=== PATIENT | female | born 1965 | race Caucasian/White ===

== ENCOUNTER 2017-07-31 07:56 | Emergency (ER) | payer BC, OTHER ==
[2017-07-31] MEDS: diazePAM 5 MG TABLET PO (08:30)
== END 2017-07-31 09:21 | disposition home or self-care (01) ==
LOC: ER 07:56
DX: S76.011A Strain of muscle, fascia and tendon of right hip, initial encounter (principal); G89.29 Other chronic pain; Z98.51 Tubal ligation status; Z88.0 Allergy status to penicillin; X58.XXXA Exposure to other specified factors, initial encounter; Y93.89 Activity, other specified; Y92.89 Other specified places as the place of occurrence of the external cause; Y99.8 Other external cause status
CPT/HCPCS: 73502; 99284

== ENCOUNTER → 2020-09-21 | Outpatient (CLI) | payer OTHER ==
[2017-07-31 08:08] VITALS: BP 175/81
[~2020-09-21] MED LIST: ALPR0.254 PO; CYCL5TAB PO; IOHEXOL 180 MG/ML 10 ML VIAL. ONE; OXYC1TAB15 PO; PREG150C PO; SIMV20TA18 PO; TIZA4TAB2 PO; TRAM50TA PO; methylPREDNISolone ACETATE 40 MG/ML VIAL. ONE; methylPREDNISolone ACETATE 80 MG/ML VIAL. ONE
--- NOTE | 2020-09-21 11:09 | PDOC1 ---
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 Patient reports now the pain is in the low back right lower extremity posterior gluteus posterior lateral thigh anterior thigh anteromedial thigh medial lower leg also some tingling in the foot and the calf on the right side patient reports occasionally on the left side mostly on the right patient repor ts is constant stabbing describes as throbbing and shooting in the low back and leg tingling with radiating pain in the right leg is noted burning aching and cramping also cold sensation in the right leg and foot patient has had physical therapy as well as doing exercise currently all of which were helpful temporarily she also takes tizanidine and tramadol which helps only to a mild extent as well maybe 20%. Patient did have MRI scan lumbar spine circumferential bulging annulus at L3-4 and L4-5 with L3-4 showing centrally protruding disc measuring 0.7 cm x 1 cm is large and circumferentially bulging and centrally protruded. Appearance of exiting L5 nerve root on the left at L5- S1 as well which may be protruding disc as well L4-5 shows several lateral bulgi ng annulus greater on the left than the right. Patient rates her disability rating 0-10 10 being the worst is a 8-10 with him home responsibilities 10 with recreation 9-10 with social activity occupation 10 with sexual behavior 7-10 with self-care and 2 with life support activities. Patient reports no loss of motor function with significant fatigability in the right leg with walking standing changing positions better with sitting or laying down patient reports it does awaken her from sleep however about 2-3 times a night does not affect her bowel bladder control but does affect her ability to walk significantly however she does not use any assistive devices currently. PAST MEDICAL HISTORY: PMH: Bronchitis, cigarette smoking PREVIOUS SURGERIES: Past Surgical Hx: Cervical laminectomy x2, tubal ligation CURRENT MEDICATIONS: Current Meds: Active Scripts Medications Dose Route/Sig Max Daily Dose Days Date Category Tramadol Hcl 50 Mg Tablet 50 Mg PO TID 09/21/20 Reported Tizanidine Hcl 4 Mg Tablet 2 Mg PO TID PRN 09/21/20 Reported Alprazolam 0.25 Mg Tablet 0.25 Mg PO PRN Q6HRS PRN 09/21/20 Reported Simvastatin 20 Mg Tablet 20 Mg PO BID 09/21/20 Reported Lyrica (Pregabalin) 150 Mg Capsule 1 Cap PO BID 09/21/20 Reported ALLERGIES; Allergies: Coded Allergies: Penicillins (Unverified Allergy, Unknown, 01/23/15) FAMILY HISTORY: Family Hx: No major medical problems or conditions that she is aware of. SOCIAL HISTORY: Social Hx: Patient is drinks alcohol occasionally but not frequently, smokes about half a pack a day of cigarettes and has for 30 years and continues to smoke, does not use any illegal illicit or recreational drugs is lives with her spouse lives locally in [facility] and works as a payroll accounting clerk. REVIEW OF SYSTEMS: ROS: Positive for those items mentioned in history of present illness, all systems are reviewed, otherwise negative ,and are complete full and well-documented on patient's chart. PHYSICAL EXAM: VS: Blood pressure is [birth year]1981 pulse 109 respirations 18 temperature 90.0 2 Fahrenheit height is 5 inches weight is 126 pounds PE: PHYSICAL EXAMINATION: GENERAL: The patient is awake, alert, oriented, appropriate, very pleasant demeanor HEENT: Shows normocephalic, atraumatic. Extraocular movements are intact and symmetrical. Oral cavity: Mucous membranes moist and pink. Dentition is intact. NECK: Shows anterior throat supple without palpable lymphadenopathy noted. Swallow reflex symmetrical. CHEST: Shows normal on inspection. Breath sounds are clear bilaterally, but no rales rhonchi or wheezes auscultated. HEART: Shows S1, S2 clear. No murmurs auscultated. ABDOMEN: Soft, nontender, nondistended, flat. No palpable organomegaly is noted. No rebound or guarding demonstrated. BACK: Shows spine grossly in the midline. Normal-appearing cervical lordotic curvature. There is slightly increased thoracic kyphosis, some minor flattening of the lumbar lordotic curvature. Lumbar paraspinous muscles show symmetrical on inspection, on palpation shows some moderate tenderness diffusely throughout the upper, middle and lower distribution of the paraspinous muscles bilaterally and also into the lower thoracic paraspinous musculature, firm and tender, but without specific trigger points, without radiation of pain. The patient has good rotational motion of the lumbar spine, both laterally as well as extension and flexion without significant difficulty. No tenderness over the spinous processes, sacrum or sacroiliac regions. EXTREMITIES: Lower extremities show deep tendon reflexes 2+ in the patellar and tendo calcaneus tendons. Motor exam is 4 on a scale of 5 with right dorsiflexion, extension, quadriceps and hamstring flexion and 5/5 on the left. Peripheral pulses are 1+ posterior tibial. No peripheral edema is noted bilaterally. Lower extremities are warm and dry to touch, equal in color and appearance. Straight leg raise noted to be negative bilaterally. Gaenslen's and Simone's maneuvers are negative bilaterally as well. The patient is able to stand, stand on her toes without significant difficulty or loss of balance, walks with a slight favoring gait does appear to favor the right lower extremity mildly with walking not use any assistive devices to ambulate. SKIN: Shows warm and dry, good turgor. No edema. No sores, rashes or bruising throughout. IMPRESSION: Impression: 54-year-old female with 9-month history of pain low back and right lower extremity radicular fashion MRI scan lumbar spine as noted Cigarette smoking with chronic bronchitis Plan: Options were discussed with the patient including conservative medical management physical therapies interventional techniques. Patient would like to pursue interventional techniques. We discussed a lumbar epidural steroid injection using description as well as anatomical models described procedure. Risks were discussed including but not limited to: Bleeding, infection, possibility of epidural hematoma and subsequent neurological compromise, dural puncture, headaches, spinal cord and/or nerve damage, side effects of steroid medication, and poor results regarding pain control. Patient understands and wished to proceed. Patient will return to clinic in approximately 2 weeks for follow-up, was counseled as return appointment activity level and side effects to be aware of. Procedure is lumbar epidural steroid injection under local anesthetic using sterile prep and drape at the L3-4 level using C-arm fluoroscopic guidance in both AP and lateral views medications injected is 120 mg Depo-Medrol + 10 mL preservative-free normal saline and 2 mL contrast- condition at discharge is stable patient tolerated procedure well had no complications. QUETA GUARDADO MD September 21, 2020 11:09
--- NOTE | 2020-09-21 11:10 | PDOC4 ---
PROCEDURE Procedure Patient was consented for lumbar epidural steroid injection. Risks were dis cussed including but not limited to: Bleeding, infection, possibility of epidural hematoma and subsequent neurological compromise, dural puncture, headaches, spinal cord and/or nerve damage, side effects of steroid medication, and poor results regarding pain control. Patient understands and wished to proceed. Procedure is lumbar epidural steroid injection under local anesthetic using sterile prep and drape at the L 3- 4 level using C-arm fluoroscopic guidance in both AP and lateral views medications injected is 120 mg Depo-Medrol + 10 mL preservative-free normal saline and 2 mL contrast- condition at discharge is stable patient tolerated procedure well had no complications. QUETA GUARDADO MD September 21, 2020 11:10
== END | disposition home or self-care (01) ==
LOC: PNCL 08:17
PROVIDERS: ATTEND Anesthesiology
DX: M54.5 Low back pain (principal); M79.604 Pain in right leg; F17.210 Nicotine dependence, cigarettes, uncomplicated; Z98.51 Tubal ligation status; Z98.890 Other specified postprocedural states; Z79.899 Other long term (current) drug therapy; Z88.0 Allergy status to penicillin
CPT/HCPCS: 62323; J1030; J1040; Q9965

== ENCOUNTER → 2020-10-05 | Outpatient (CLI) | payer OTHER ==
[2017-07-31 08:08] VITALS: BP 175/81
--- NOTE | 2020-10-05 10:16 | PDOC ---
Progress Note - Pain Clinic Date of Service: DOS: DATE: 10/05/20 TIME: 10:13 Diagnosis: Dx: Lumbar radiculopathy with lumbar degenerative disc disease and lumbar spinal stenosis History or Present Illness: HPI: 54-year-old female returns for follow-up status post lumbar epidural steroid traction x1. Patient reports about 60% improvement initially in the low back and right lower extremity the pain returning after about 20% level overall after about 2 and half weeks. Patient reports the pain is returning fairly significantly and we discussed this and I will elect to proceed with a second lumbar epidural steroid injection as the pain is becoming so severe patient reports initially doing much better for the first 2 weeks with pain decreased in the right lower extremity she was increase her distance walking doing household activities work activities travel with greater ease and comfort sleeping better at night patient reports still does not generally awaken her from sleep and occasionally patient reports the pain is in the low back right lower extremity posterior gluteus lateral thigh anterior thigh medial thigh medial lower leg and medial knee patient ports aching dull tight in the back tingling and burning in the leg cramping and shooting on and off in intensity again worse with activity patient reports no new motor or sensory deficits no new meds. Physical Exam: VS: Blood pressure is 140/72 pulse 88 respirations 18 temperature 90.5 F height is 5 feet 5 inches weight is 124 pounds. PE: PHYSICAL EXAMINATION: GENERAL: The patient is awake, alert, oriented, appropriate, very pleasant demeanor HEENT: Shows normocephalic, atraumatic. Extraocular movements are intact and symmetrical. Oral cavity: Mucous membranes moist and pink. Dentition is intact. NECK: Shows anterior throat supple without palpable lymphadenopathy noted. Swallow reflex symmetrical. CHEST: Shows normal on inspection. Breath sounds are clear bilaterally. HEART: Shows S1, S2 clear. No murmurs auscultated. ABDOMEN: Soft, nontender, nondistended, flat. No palpable organomegaly is noted. No rebound or guarding demonstrated. BACK: Shows spine grossly in the midline. Normal-appearing cervical lordotic curvature. There is slightly increased thoracic kyphosis, some minor flattening of the lumbar lordotic curvature. Lumbar paraspinous muscles show symmetrical on inspection, on palpation shows some moderate tenderness diffusely throughout the upper, middle and lower distribution of the paraspinous muscles without specific trigger points, without radiation of pain. The patient has good rotational motion of the lumbar spine, both laterally as well as extension and flexion without significant difficulty. EXTREMITIES: Lower extremities show deep tendon reflexes 2+ in the patellar and tendo calcaneus tendons. Motor exam is 4 on a scale of 5 with right dorsiflexion, extension, quadriceps and hamstring flexion and 5/5 on the left. Peripheral pulses are 1+ posterior tibial. No peripheral edema is noted bilaterally. Lower extremities are warm and dry to touch, equal in color and appearance. SKIN: Shows warm and dry, good turgor. No edema. No sores, rashes or bruising throughout. Procedure: Procedure: Options were discussed with the patient. Patient chart reviews her current medication regimen updated current review of systems updated today as well. We will proceed with a second in the series lumbar epidural steroid injection stable fluoroscopic guidance. Risks were discussed including but not limited to: Bleeding, infection, possibility of epidural hematoma and subsequent neurological compromise, dural puncture, headaches, spinal cord and/or nerve damage, side effects of steroid medication, and poor results regarding pain control. Patient understands and wished to proceed. She will return to clinic in approximate 2 weeks for follow-up, was counseled as return appointment activity level and side effects to be aware of. Medication Injected: Med Injected: Procedure is lumbar epidural steroid injection under local anesthetic using sterile prep and drape at the L3-4 level using C-arm fluoroscopic guidance in both AP and lateral views medications injected is 120 mg Depo-Medrol +10mL preservative-free normal saline and 2 mL contrast- condition at discharge is stable patient tolerated procedure well had no complications. Condition at Discharge: Condition at Discharge: Condition at discharge stable, patient alert procedure well and had no complications. QUETA GUARDADO MD October 05, 2020 10:16
--- NOTE | 2020-10-05 10:16 | PDOC4 ---
PROCEDURE Procedure Patient is consented for lumbar epidural steroid injection. Risks were disc ussed including but not limited to: Bleeding, infection, possibility of epidural hematoma and subsequent neurological compromise, dural puncture, headaches, spinal cord and/or nerve damage, side effects of steroid medication, and poor results regarding pain control. Patient understands and wished to proceed. Procedure is lumbar epidural steroid injection under local anesthetic using sterile prep and drape at the L3-4 level using C-arm fluoroscopic guidance in both AP and lateral views medications injected is 120 mg Depo-Medrol +10mL preservative-free normal saline and 2 mL contrast- condition at discharge is stable patient tolerated procedure well had no complications. QUETA GUARDADO MD October 05, 2020 10:16
== END | disposition home or self-care (01) ==
LOC: PNCL 08:53
PROVIDERS: ATTEND Anesthesiology
DX: M51.16 Intervertebral disc disorders with radiculopathy, lumbar region (principal); M48.061 Spinal stenosis, lumbar region without neurogenic claudication; F17.210 Nicotine dependence, cigarettes, uncomplicated; Z79.899 Other long term (current) drug therapy; Z98.890 Other specified postprocedural states; Z88.0 Allergy status to penicillin
CPT/HCPCS: 62323; J1030; J1040; Q9965

== ENCOUNTER → 2020-11-10 | Outpatient (CLI) | payer OTHER ==
[2017-07-31 08:08] VITALS: BP 175/81
[~2020-11-10] MED LIST changes: +HYDR-2761 PO
--- NOTE | 2020-11-10 09:35 | PDOC ---
Progress Note - Pain Clinic Date of Service: DOS: DATE: 11/10/20 TIME: 09:32 Diagnosis: Dx: Lumbar radiculopathy lumbar degenerative disease and lumbar spinal stenosis History or Present Illness: HPI: 54-year-old female returns for follow-up status post lumbar epidural steroid injection x2. Patient reports initially doing better but the pain returned fairly significantly about a 60% improvement initially now about 10% improvement in the low back and right lower extremity patient reports the pain is more now in the right lateral aspect of the hip and right thigh as well as anterior thigh medial thigh and anterior lower leg with some cramping involving in the lower extremity since her last visit as well patient reports the pain is a 10 on scale 10 is worse over the past week 9 on average 5 its least is a 7 today patient reports aching dull tight tingling burning shooting and cramping in the leg stabbing can be severe and unbearable with weightbearing standing and walking. Patient reports no new motor or sensory deficits no bowel or bladder incontinence. Patient reports 2 weeks of sleep about once every 6 hours or so. Physical Exam: VS: Blood pressure is 120/83 pulse 96 respirations 18 temperature 98.1 F weight is 125 pounds PE: PHYSICAL EXAMINATION: GENERAL: The patient is awake, alert, oriented, appropriate, very pleasant demeanor HEENT: Shows normocephalic, atraumatic. Extraocular movements are intact and symmetrical. Oral cavity: Mucous membranes moist and pink. Dentition is intact. NECK: Shows anterior throat supple without palpable lymphadenopathy noted. Swallow reflex symmetrical. CHEST: Shows normal on inspection. Breath sounds are clear bilaterally. HEART: Shows S1, S2 clear. No murmurs auscultated. ABDOMEN: Soft, nontender, nondistended, flat. BACK: Shows spine grossly in the midline. Normal-appearing cervical lordotic curvature. There is slightly increased thoracic kyphosis, some minor flattening of the lumbar lordotic curvature. Lumbar paraspinous muscles show symmetrical on inspection, on palpation shows some moderate tenderness diffusely throughout the upper, middle and lower distribution of the paraspinous muscles, but without specific trigger points, without radiation of pain. The patient has good rotational motion of the lumbar spine, both laterally as well as extension and flexion without significant difficulty. No tenderness over the spinous processes, sacrum or sacroiliac regions. EXTREMITIES: Lower extremities show deep tendon reflexes 2+ in the patellar and tendo calcaneus tendons. Motor exam is 4 on a scale of 5 with right dorsiflexion, extension, quadriceps and hamstring flexion and 5/5 on the left. Peripheral pulses are 1+ posterior tibial. No peripheral edema is noted bilaterally. Lower extremities are warm and dry. SKIN: Shows warm and dry, good turgor. No edema. No sores, rashes or bruising throughout. Procedure: Procedure: Options discussed with the patient. Patient chart reviews her current medi cation regimen updated current review of systems updated today as well. We will proceed with a third in the series lumbar epidural steroid injection today with fluoroscopic guidance. Risks were discussed including but not limited to: Bleeding, infection, possibility of epidural hematoma and subsequent neurological compromise, dural puncture, headaches, spinal cord and/or nerve da mage, side effects of steroid medication, and poor results regarding pain control. Patient understands and wished to proceed. Patient return to clinic approximate 2 weeks for follow-up, was counseled as to return appointment activity level and side effects to be aware of. Patient reports she does have a evaluation with neurosurgeon coming up in about 1 month as well. Medication Injected: Med Injected: Procedure is lumbar epidural steroid injection under local anesthetic using sterile prep and drape at the L4-5 level using C-arm fluoroscopic guidance in both AP and lateral views medications injected is 120 mg Depo-Medrol +10mL preservative-free normal saline and 2 mL contrast- condition at discharge is stable patient tolerated procedure well had no complications. Condition at Discharge: Condition at Discharge: Condition at discharge stable, patient already procedure well and had no complications. QUETA GUARDADO MD Nov 10, 2020 09:35
--- NOTE | 2020-11-10 09:35 | PDOC4 ---
Procedure Note: Procedure Note: Patient was consented for lumbar epidural steroid injection. Risks were discussed including but not limited to: Bleeding, infection, possibility of epidural hematoma and subsequent neurological compromise, dural puncture, headaches, spinal cord and/or nerve damage, side effects of steroid medication, and poor results regarding pain control. Patient understands and wished to proceed. Procedure is lumbar epidural steroid injection under local anesthetic using sterile prep and drape at the L4 5 level using C-arm fluoroscopic guidance in both AP and lateral views medications injected is 120 mg Depo-Medrol +10mL preservative-free normal saline and 2 mL contrast- condition at discharge is stable patient tolerated procedure well had no complications. QUETA GUARDADO MD Nov 10, 2020 09:35
== END | disposition home or self-care (01) ==
LOC: PNCL 08:56
PROVIDERS: ATTEND Anesthesiology
DX: M51.16 Intervertebral disc disorders with radiculopathy, lumbar region (principal); M48.061 Spinal stenosis, lumbar region without neurogenic claudication; F17.210 Nicotine dependence, cigarettes, uncomplicated; Z79.899 Other long term (current) drug therapy; Z88.0 Allergy status to penicillin
CPT/HCPCS: 62323; J1030; J1040; Q9965

== ENCOUNTER → 2021-03-16 | Outpatient (CLI) | payer OTHER ==
[2017-07-31 08:08] VITALS: BP 175/81
[~2021-03-16] MED LIST changes: -IOHEXOL 180 MG/ML 10 ML VIAL. ONE; +TIZA-75 PO; -TIZA4TAB2 PO; -methylPREDNISolone ACETATE 40 MG/ML VIAL. ONE; -methylPREDNISolone ACETATE 80 MG/ML VIAL. ONE
--- NOTE | 2021-03-16 08:24 | PDOC ---
Progress Note - Pain Clinic Date of Service: DOS: DATE: 03/16/21 TIME: 08:19 Diagnosis: Dx: Lumbar radiculopathy with lumbar degenerative disease and lumbar spinal stenosis Myofascial pain History or Present Illness: HPI: 55-year-old female returns for follow-up status post lumbar epidural steroid injections last seen in November 102020. Patient did very well with about 70% improvement pain is returning down the low back and the right lower extremity but her main complaint is pain in the mid upper back very firm tender areas on the right side primarily which are very tight very spastic and keeping her from sleep at night difficulty with walking standing changing position especially getting up from a seated position patient reports she is having difficulty getting to a reclining position when going to bed as well because of the pain patient reports the pain radiates around the chest occasionally and causes some shortness of breath. Patient reports no bowel or bladder incontinence no motor deficits but significant fatigability the right lower extremity patient reports that she has had recent revascularization in the iliac arteries which is restored significant ability and function right lower extremity specially, but still significant pain radiating in the L4-5 dermatomal distribution on the right. Patient scribes pain is aching sharp dull tight tingling burning stabbing on and off in intensity rated a 10 on scale 10 is worse over the past week 8 on average 3 its least is an 8 today. Patient has been using heat application as w ell as stretching and pressure massage as well as doing her physical therapy exercises as well but without significant reduction in this pain. Patient reports that while the pain in the right lower extremity is present and is much better after revascularization with functionality but the pain is still there which was improved significantly after lumbar epidural steroid injection but the new pain that she has in the mid upper back is becoming much more painful and debilitating. Physical Exam: VS: Blood pressure is 129/97 pulse 94 respirations 18 temperature 97.1 F height 5 feet 5 inches weight is 132 pounds PE: PHYSICAL EXAMINATION: GENERAL: The patient is awake, alert, oriented, appropriate, very pleasant in demeanor HEENT: Shows normocephalic, atraumatic. Extraocular movements are intact and symmetrical. Oral cavity: Mucous membranes moist and pink. Dentition is intact. NECK: Shows anterior throat supple without palpable lymphadenopathy noted. Swa llow reflex symmetrical. CHEST: Shows normal on inspection. Breath sounds are clear bilaterally, coarse but no rales or rhonchi. HEART: Shows S1, S2 clear. No murmurs auscultated. ABDOMEN: Soft, nontender, nondistended. No palpable organomegaly is noted. BACK: Shows spine grossly in the midline. Normal-appearing cervical lordotic curvature. There is slightly increased thoracic kyphosis, some minor flattening of the lumbar lordotic curvature. Lumbar paraspinous muscles show symmetrical on inspection, on palpation shows some moderate tenderness diffusely throughout the upper, middle and lower distribution of the paraspinous muscles, with very firm ropelike musculature in the right paraspinous muscles in the thoracic distribution as well as the upper lumbar distribution on the right side consistent with trigger point areas of musculature very tender very firm but without specific radiation. The patient has good rotational motion of the lumbar spine, both laterally as well as extension and flexion without significant difficulty. No tenderness over the spinous processes, sacrum or sacroiliac regions. EXTREMITIES: Lower extremities show deep tendon reflexes 2+ in the patellar and tendo calcaneus tendons. Motor exam is 4 on a scale of 5 with right dorsiflex ion, extension, quadriceps and hamstring flexion and 5/5 on the left. Peripheral pulses are 1+ posterior tibial. No peripheral edema is noted bilaterally. Lower extremities are warm and dry to touch, equal in color and appearance. SKIN: Shows warm and dry, good turgor. No edema. No sores, rashes or bruising throughout. Procedure: Procedure: Options discussed with patient. Patient chart reviews her current medication regimen updated current review of systems updated today as well. We will preauthorize patient for trigger point injections of the right thoracic paraspinous muscular as well as right lumbar paraspinous musculature. Patient will be given Medrol Dosepak and was given instructions well side effects aware with the medication in the meantime. Patient also encouraged to maintain continued stretching strengthening as well as heat application of the areas in the right side mid and upper and low back. Medication Injected: Med Injected: None Condition at Discharge: Condition at Discharge: Condition at discharge is stable. QUETA GUARDADO MD Mar 16, 2021 08:24
== END | disposition home or self-care (01) ==
LOC: PNCL 07:34
PROVIDERS: ATTEND Anesthesiology
DX: M51.16 Intervertebral disc disorders with radiculopathy, lumbar region (principal); M48.061 Spinal stenosis, lumbar region without neurogenic claudication; M79.18 Myalgia, other site; F17.210 Nicotine dependence, cigarettes, uncomplicated; Z79.899 Other long term (current) drug therapy; Z98.890 Other specified postprocedural states; Z88.0 Allergy status to penicillin
CPT/HCPCS: 99212; G0463

== ENCOUNTER → 2021-03-30 | Outpatient (CLI) | payer OTHER ==
[2017-07-31 08:08] VITALS: BP 175/81
[~2021-03-30] MED LIST changes: +IOHEXOL 180 MG/ML 10 ML VIAL. ONE; +methylPREDNISolone ACETATE 40 MG/ML VIAL. ONE; +methylPREDNISolone ACETATE 80 MG/ML VIAL. ONE
--- NOTE | 2021-03-30 08:39 | PDOC ---
Progress Note - Pain Clinic Date of Service: DOS: DATE: 03/30/21 TIME: 08:36 Diagnosis: Dx: Lumbar radiculopathy lumbar degenerative disease lumbar spinal stenosis Myofascial pain History or Present Illness: HPI: 55-year-old female returns for follow-up status post previous lumbar epidural steroid injection last in October 2020. Patient reports she did very well with the injections but the pain is returning but now is different and that is across the low back and in the mid upper back we had discussed this with her in February and had her preauthorized for some trigger point injections however the pain is changed since that time and is now in the left lower extremity posterior gluteus lateral thigh anterior thigh medial thigh as well as some on the right and across the low back and in the mid back as well patient reports the left side is becoming more noticeable with some pain on the right but the left side is much more aggravating patient reports no loss of motor function but worse with walking standing changing positions fatigues easily describes as aching and dull in the back tight in the back tingling burning in the leg stabbing in the back as well as the leg can be severe and unbearable on and off in intensity. Patient reports her pain is a 10 on scale 10 is worse over the past week 7 on average 3 at its least is a 7 today. Patient reports no loss of motor function no bowel or bladder incontinence. Physical Exam: VS: Blood pressure is 120/83 pulse 98 respirations 18 temperature 98.3 F and height is 5 feet 4 inches weight 130 pounds PE: PHYSICAL EXAMINATION: GENERAL: The patient is awake, alert, oriented, appropriate, very pleasant in demeanor HEENT: Shows normocephalic, atraumatic. Extraocular movements are intact and symmetrical. Oral cavity: Mucous membranes moist and pink. Dentition is intact. NECK: Shows anterior throat supple without palpable lymphadenopathy noted. Swallow reflex symmetrical. CHEST: Shows normal on inspection. Breath sounds are clear bilaterally, distant no rales or. HEART: Shows S1, S2 clear. No murmurs auscultated. ABDOMEN: Soft, nontender, nondistended. No palpable organomegaly is noted. BACK: Shows spine grossly in the midline. Normal-appearing cervical lordotic curvature. There is slightly increased thoracic kyphosis, some flattening of the lumbar lordotic curvature. Lumbar paraspinous muscles show symmetrical on inspection, on palpation shows some moderate tenderness diffusely throughout the upper, middle and lower distribution of the paraspinous muscles, but without specific trigger points, without radiation of pain. The patient has good rotational motion of the lumbar spine, both laterally as well as extension and flexion without significant difficulty. EXTREMITIES: Lower extremities show deep tendon reflexes 2+ in the patellar and tendo calcaneus tendons. Motor exam is 4 on a scale of 5 with right racheal siflexion, extension, quadriceps and hamstring flexion and 5/5 on the left. Peripheral pulses are 1 posterior tibial. No peripheral edema is noted bilaterally. Lower extremities are warm and dry to touch, equal in color and appearance. SKIN: Shows warm and dry, good turgor. No edema. No sores, rashes or bruising throughout. Procedure: Procedure: Options were discussed with the patient. Patient chart reviews her current medication regimen updated current review of systems updated today as well. We will proceed with a lumbar epidural steroid injection today with fluoroscopic guidance. Risks were discussed including but not limited to: Bleeding, infection, possibility of epidural hematoma and subsequent neurological co mpromise, dural puncture, headaches, spinal cord and/or nerve damage, side effects of steroid medication, and poor results regarding pain control. Patient understands and wished to proceed. Patient will return to the clinic in approximate 2 weeks for follow-up, was counseled return appointment, activity level, and side effect to be aware of. Medication Injected: Med Injected: Procedure is lumbar epidural steroid injection under local anesthetic using sterile prep and drape at the L4-5 level using C-arm fluoroscopic guidance in both AP and lateral views medications injected is 120 mg Depo-Medrol +10mL preservative-free normal saline and 2 mL contrast- condition at discharge is stable patient tolerated procedure well had no complications. Condition at Discharge: Condition at Discharge: Condition at discharge stable, patient Aymel the procedure well and had no complications. QUETA GUARDADO MD Mar 30, 2021 08:39
--- NOTE | 2021-03-30 08:40 | PDOC4 ---
Procedure Note: ICD 10 Code: ICD 10 Code: M54.16 M51.36 M4 8.06 Procedure Note: Patient was consented for lumbar epidural steroid injection with fluoroscopic guidance. Risks were discussed including but not limited to: Bleeding, infection, possibility of epidural hematoma and subsequent neurological compromise, dural puncture, headaches, spinal cord and/or nerve damage, side effects of steroid medication, and poor results regarding pain control. Patient understands and wished to proceed. Procedure is lumbar epidural steroid injection under local anesthetic using carly rile prep and drape at the L4-5 level using C-arm fluoroscopic guidance in both AP and lateral views medications injected is 120 mg Depo-Medrol +10mL preservative-free normal saline and 2 mL contrast- condition at discharge is stable patient tolerated procedure well had no complications. QUETA GUARDADO MD Mar 30, 2021 08:40
== END | disposition home or self-care (01) ==
LOC: PNCL 07:31
PROVIDERS: ATTEND Anesthesiology
DX: M51.16 Intervertebral disc disorders with radiculopathy, lumbar region (principal); M48.061 Spinal stenosis, lumbar region without neurogenic claudication; M79.18 Myalgia, other site; F17.210 Nicotine dependence, cigarettes, uncomplicated; Z79.899 Other long term (current) drug therapy; Z88.0 Allergy status to penicillin
CPT/HCPCS: 62323; J1030; J1040; Q9965

== ENCOUNTER → 2021-05-16 | Outpatient (CLI) | payer OTHER ==
[2017-07-31 08:08] VITALS: BP 175/81
--- NOTE | 2021-05-16 08:29 | PDOC ---
Progress Note - Pain Clinic Date of Service: DOS: DATE: 05/16/21 TIME: 08:26 Diagnosis: Dx: Lumbar radiculopathy with lumbar degenerative disease lumbar spinal stenosis Myofascial pain History or Present Illness: HPI: 55-year-old female returns for follow-up status post lumbar epidural steroid injection x1 last seen March 2021 patient did very well 70% improvement in low back and left lower extremity pain patient reports pain is returning now has new pain in the mid upper back as well as between the shoulders on the right side greater than the left also pain across the low back rating to left leg posterior gluteus posterior lateral thigh lateral anterior thigh anteromedial thigh and into the left flank at times as well patient reports aching and sharp at times tingling burning on and off in intensity in the leg with walking standing much better after last injection patient reports he is doing better with distance walking doing household activities work activities try with greater ease and comfort sleeping much better does not awaken her from sleep currently patient reports her pain is an 8 on scale 10 is worst the past week 6 on average 3 to [place] is a 6 today patient describes it is on and off in the upper back as well and is sharp and burning more in the upper back between the shoulder as well as on the right side greater than the left. Patient reports no bowel or bladder incontinence. Physical Exam: VS: Blood pressure is 134/96 pulse 93 respirations 18 temperature 97.5 F height 5 feet 5 inches weight 131 pounds PE: PHYSICAL EXAMINATION: GENERAL: The patient is awake, alert, oriented, appropriate, very pleasant in demeanor HEENT: Shows normocephalic, atraumatic. Extraocular movements are intact and symmetrical. Oral cavity: Mucous membranes moist and pink. Dentition is intact. NECK: Shows anterior throat supple without palpable lymphadenopathy noted. Swallow reflex symmetrical. CHEST: Shows normal on inspection. Breath sounds are clear bilaterally. HEART: Shows S1, S2 clear. No murmurs auscultated. ABDOMEN: Soft, nontender, nondistended. No palpable organomegaly is noted. BACK: Shows spine grossly in the midline. Normal-appearing cervical lordotic curvature. There is slightly increased thoracic kyphosis, some flattening of the lumbar lordotic curvature. Lumbar paraspinous muscles show symmetrical on inspection, on palpation shows some moderate tenderness diffusely throughout the upper, middle and lower distribution of the paraspinous muscles bilaterally and also into the lower thoracic paraspinous musculature, firm and tender, without radiation of pain. The patient has good rotational motion of the lumbar spine, both laterally as well as extension and flexion without significant difficulty. No tenderness over the spinous processes, sacrum or sacroiliac regions. EXTREMITIES: Lower extremities show deep tendon reflexes 2+ in the patellar and tendo calcaneus tendons. Motor exam is 4 on a scale of 5 with right dorsiflexion, extension, quadriceps and hamstring flexion and 5/5 on the left. Peripheral pulses are 1+ posterior tibial. No peripheral edema is noted bilaterally. Lower extremities are warm and dry. SKIN: Shows warm and dry, good turgor. No edema. No sores, rashes or bruising throughout. Procedure: Procedure: Options discussed with patient. Patient chart was reviewed as her current medi cation regimen updated review of systems updated today as well. We will proceed with a lumbar epidural steroid injection today with fluoroscopic guidance. Risks were discussed including but not limited to: Bleeding, infection, possibility of epidural hematoma and subsequent neurological compromise, dural puncture, headaches, spinal cord and/or nerve damage, side effects of steroid medication, and poor results regarding pain control. Patient understands and wished to proceed. Patient will return to clinic in approximate 2 weeks for follow-up, was counseled as to return appointment, activity level, and side effect to be aware of. Medication Injected: Med Injected: Procedure is lumbar epidural steroid injection under local anesthetic using sterile prep and drape at the L4-5 level using C-arm fluoroscopic guidance in both AP and lateral views medications injected is 120 mg Depo-Medrol +10mL preservative-free normal saline and 2 mL contrast- condition at discharge is stable patient tolerated procedure well had no complications. Condition at Discharge: Condition at Discharge: Condition at discharge stable, patient tolerated the procedure well and had no complications. QUETA GUARDADO MD May 16, 2021 08:29
--- NOTE | 2021-05-16 08:30 | PDOC4 ---
Procedure Note: ICD 10 Code: ICD 10 Code: M54.16 M51.36 M4 8.06 Procedure Note: Patient was consented for lumbar epidural steroid injection with fluoroscopic guidance. Risks were discussed including but not limited to: Bleeding, infection, possibility of epidural hematoma and subsequent neurological compromise, dural puncture, headaches, spinal cord and/or nerve damage, side effects of steroid medication, and poor results regarding pain control. Patient understands and wished to proceed. Procedure is lumbar epidural steroid injection under local anesthetic using carly rile prep and drape at the L4-5 level using C-arm fluoroscopic guidance in both AP and lateral views medications injected is 120 mg Depo-Medrol +10mL preservative-free normal saline and 2 mL contrast- condition at discharge is stable patient tolerated procedure well had no complications. QUETA GUARDADO MD May 16, 2021 08:30
== END | disposition home or self-care (01) ==
LOC: PNCL 07:37
PROVIDERS: ATTEND Anesthesiology
DX: M51.16 Intervertebral disc disorders with radiculopathy, lumbar region (principal); M48.061 Spinal stenosis, lumbar region without neurogenic claudication; M79.18 Myalgia, other site; F17.210 Nicotine dependence, cigarettes, uncomplicated; Z79.899 Other long term (current) drug therapy; Z88.0 Allergy status to penicillin
CPT/HCPCS: 62323; J1030; J1040; Q9965

== ENCOUNTER → 2021-06-20 | Outpatient (CLI) | payer OTHER ==
[2017-07-31 08:08] VITALS: BP 175/81
[~2021-06-20] MED LIST changes: -methylPREDNISolone ACETATE 40 MG/ML VIAL. ONE
--- NOTE | 2021-06-20 08:20 | PDOC ---
Progress Note - Pain Clinic Date of Service: DOS: DATE: 06/20/21 TIME: 08:16 Diagnosis: Dx: Lumbar radiculopathy with lumbar degenerative disc disease and lumbar spinal stenosis History or Present Illness: HPI: 55-year-old female returns for follow-up status post lumbar epidural steroid injection x2 last seen 05/16/2021. Patient reports she did very well with about a 70% improvement in her low back and left lower extremity pain pain returning still moderate extent but much better than it was increase activity distance walking doing household activities work activities sitting for longer periods of time with less pain patient also reports some pain now in the right upper back which is becoming more noticeable above the hip and up into the posterior rib cage as well which she is doing better with putting pressure on this and massage as well and stretching patient reports has been using Biofreeze also but the pain in the right mid upper back is becoming more noticeable as her left leg is getting better. Patient reports still significant pain rating the left lower extremity posterior gluteus lateral thigh anterior thigh medial thigh and medial lower leg at times with walking and standing for too long greater than about 20 to 30 minutes. Patient reports her pain to 10 on scale 10 is worse over the past week 7 on average 3 to [place] is a 7 today patient scribes aching sharp dull shooting in the leg on the left side tingling and burning also stabbing pain in the mid upper back on the right side only. Patient reports no new bowel or bladder incontinence generally better with sitting or laying down awaken from sleep only very infrequently. Physical Exam: VS: Blood pressure is 118/93 pulse 101 respirations 16 temperature 90.2 F height is 5 foot 5 inches weight 132 pounds PE: PHYSICAL EXAMINATION: GENERAL: The patient is awake, alert, oriented, appropriate, very pleasant in demeanor HEENT: Shows normocephalic, atraumatic. Extraocular movements are intact and symmetrical. Oral cavity: Mucous membranes moist and pink. Dentition is intact. NECK: Shows anterior throat supple without palpable lymphadenopathy noted. Swallow reflex symmetrical. CHEST: Shows normal on inspection. Breath sounds are clear bilaterally, no rales or rhonchi. HEART: Shows S1, S2 clear. No murmurs auscultated. ABDOMEN: Soft, nontender, nondistended. No palpable organomegaly is noted. BACK: Shows spine grossly in the midline. Normal-appearing cervical lordotic curvature. There is slightly increased thoracic kyphosis, some minor flattening of the lumbar lordotic curvature. Lumbar paraspinous muscles show symmetrical on inspection, on palpation shows some moderate tenderness diffusely throughout the upper, middle and lower distribution of the paraspinous muscles, but without radiation of pain. The patient has good rotational motion of the lumbar spine, both laterally as well as extension and flexion without significant difficulty. No tenderness over the spinous processes, sacrum or sacroiliac regions. EXTREMITIES: Lower extremities show deep tendon reflexes 2+ in the patellar and tendo calcaneus tendons. Motor exam is 4 on a scale of 5 with right dorsiflexion, extension, quadriceps and hamstring flexion and 5/5 on the left. Peripheral pulses are one+ posterior tibial. No peripheral edema is noted bilaterally. Lower extremities are warm and dry to touch, equal in color and appearance. SKIN: Shows warm and dry, good turgor. No edema. No sores, rashes or bruising throughout. Procedure: Procedure: Options were discussed with patient. Patient's old chart was viewed as her current medication regimen updated current review of systems updated today as well. We will proceed with a lumbar epidural steroid injection today with fluo roscopic guidance. Risks were discussed including but not limited to: Bleeding, infection, possibility of epidural hematoma and subsequent neurological compromise, dural puncture, headaches, spinal cord and/or nerve damage, side effects of steroid medication, and poor results regarding pain control. Patient understands and wished to proceed. Patient will return to the clinic in ap proximate 2 weeks for follow-up, was counseled as to return appointment, activity, and side effects to be aware of. Medication Injected: Med Injected: Procedure is lumbar epidural steroid injection under local anesthetic using sterile prep and drape at the L4-5 level using C-arm fluoroscopic guidance in both AP and lateral views medications injected is 120 mg Depo-Medrol +10mL preservative-free normal saline and 2 mL contrast- condition at discharge is stable patient tolerated procedure well had no complications. Condition at Discharge: Condition at Discharge: Condition at discharge stable, patient tolerated procedure well and had no complications. QUETA GUARDADO MD Jun 20, 2021 08:20
--- NOTE | 2021-06-20 08:21 | PDOC4 ---
Procedure Note: ICD 10 Code: ICD 10 Code: M54.16 M51.36 M4 8.06 Procedure Note: Patient was consented for lumbar epidural steroid injection with fluoroscopic guidance. Risks were discussed including but not limited to: Bleeding, infection, possibility of epidural hematoma and subsequent neurological compromise, dural puncture, headaches, spinal cord and/or nerve damage, side effects of steroid medication, and poor results regarding pain control. Patient understands and wished to proceed. Procedure is lumbar epidural steroid injection under local anesthetic using ster ile prep and drape at the L4-5 level using C-arm fluoroscopic guidance in both AP and lateral views medications injected is 120 mg Depo-Medrol +10mL preservative-free normal saline and 2 mL contrast- condition at discharge is stable patient tolerated procedure well had no complications. QUETA GUARDADO MD Jun 20, 2021 08:21
== END | disposition home or self-care (01) ==
LOC: PNCL 07:43
PROVIDERS: ATTEND Anesthesiology
DX: M51.16 Intervertebral disc disorders with radiculopathy, lumbar region (principal); M48.061 Spinal stenosis, lumbar region without neurogenic claudication; F17.210 Nicotine dependence, cigarettes, uncomplicated; Z79.899 Other long term (current) drug therapy; Z98.890 Other specified postprocedural states; Z88.0 Allergy status to penicillin
CPT/HCPCS: 62323; J1040; Q9965

== ENCOUNTER → 2021-07-11 | Outpatient (CLI) | payer OTHER ==
[2017-07-31 08:08] VITALS: BP 175/81
[~2021-07-11] MED LIST changes: -IOHEXOL 180 MG/ML 10 ML VIAL. ONE; -methylPREDNISolone ACETATE 80 MG/ML VIAL. ONE
--- NOTE | 2021-07-11 08:40 | PDOC ---
Progress Note - Pain Clinic Date of Service: DOS: DATE: 07/11/21 TIME: 08:35 Diagnosis: Dx: Myofascial pain lumbar radiculopathy lumbar degenerative disease lumbar spinal stenosis History or Present Illness: HPI: 55-year-old female returns for follow-up status post lumbar epidural steroid injection x3. Patient reports that she has had decrease in pain in the left lower extremity but the pain in the back is becoming more noticeable and more tight in quality radiating up into the low thoracic distribution as well as the mid back into the shoulder blades at times patient reports some pain in the left hip but no longer radiating to the left lower extremity patient reports a 10 on scale 10 is worse over the past week 9 on average 5 its least is a 9 today patient reports is worse with walking standing changing positions awakens her from sleep for 4-5 times a night and again the pain is different than it was as it is more tight and spastic in her back and more in the mid back and some in the upper back as well is in the hips and the left gluteus. Scribes pain is aching dull tight shooting stabbing burning tingling can be constant with activity better with sitting or lying down she has been doing heat and massage therapies doing stretching as well as taking anti-inflammatories Aleve also hydrocodone also tramadol also tizanidine without significant reduction in pain. 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 Patient reports no loss of motor function no bowel or bladder incontinence. Physical Exam: VS: Blood pressure is 139/86 pulse 99 respirations 18 temperature is 98.2 F height is 5 feet 5 inches weight is 131 pounds. PE: PHYSICAL EXAMINATION: GENERAL: The patient is awake, alert, oriented, appropriate, very pleasant in demeanor HEENT: Shows normocephalic, atraumatic. Extraocular movements are intact and symmetrical. Oral cavity: Mucous membranes moist and pink. Dentition is intact. NECK: Shows anterior throat supple without palpable lymphadenopathy noted. Swallow reflex symmetrical. CHEST: Shows normal on inspection. Breath sounds are clear bilaterally, coarse but no rales or rhonchi auscultated. HEART: Shows S1, S2 clear. No murmurs auscultated. ABDOMEN: Soft, nontender, nondistended. No palpable organomegaly is noted. BACK: Shows spine grossly in the midline. Normal-appearing cervical lordotic curvature. There is slightly increased thoracic kyphosis, some minor flattening of the lumbar lordotic curvature. Lumbar paraspinous muscles show symmetrical on inspection, on palpation shows some moderate tenderness diffusely throughout the upper, middle and lower distribution of the paraspinous musculature as well as the thoracic paraspinous musculature with very firm ropelike musculature throughout the middle lower thoracic into the upper middle lower distribution the paraspinous muscles in the lumbar distribution very firm ropelike muscles are consistent with trigger point areas bilaterally very firm and tender without specific radiation but very tender with palpation bilaterally., without radiation of pain. The patient has good rotational motion of the lumbar spine, both laterally as well as extension and flexion with some moderate tenderness with extension and axial loading but not with forward flexion also right and left lateral rotation is performed with only minimal tenderness at this time. No tenderness over the spinous processes, sacrum or sacroiliac regions. EXTREMITIES: Lower extremities show deep tendon reflexes 2+ in the patellar and tendo calcaneus tendons. Motor exam is 4 on a scale of 5 with right dorsiflexion, extension, quadriceps and hamstring flexion and 5/5 on the left. Peripheral pulses are 1+ posterior tibial. No peripheral edema is noted bilaterally. Lower extremities are warm and dry to touch, equal in color and appearance. SKIN: Shows warm and dry, good turgor. No edema. No sores, rashes or bruising throughout. Procedure: Procedure: Options were discussed with the patient. Patient's chart was viewed as her current medication regimen updated current review of systems updated today as well. We will preauthorize patient for trigger point injections of the bilateral thoracic paraspinous posterior bilateral lumbar paraspinous muscles and left gluteus musculature with significant trigger points but without specific radiation on exam today. Also will change patient's tizanidine to new prescription medication muscle relaxer of Skelaxin 800 mg 3 times daily. Patient was given instructions well side effects beware of with the medication. Also will prescribe Medrol Dosepak patient was given instructions as well as side effects beware of with this medication as well patient will follow up once preauthorize we will plan on trigger point injections as described. In the meantime, patient continue with stretching strength exercises heat application and massage techniques as currently. Medication Injected: Med Injected: None Condition at Discharge: Condition at Discharge: Condition at discharge is stable. QUETA GUARDADO MD Jul 11, 2021 08:40
== END | disposition home or self-care (01) ==
LOC: PNCL 08:10
PROVIDERS: ATTEND Anesthesiology
DX: M79.18 Myalgia, other site (principal); M51.16 Intervertebral disc disorders with radiculopathy, lumbar region; M48.061 Spinal stenosis, lumbar region without neurogenic claudication; F17.210 Nicotine dependence, cigarettes, uncomplicated; Z79.899 Other long term (current) drug therapy; Z88.0 Allergy status to penicillin
CPT/HCPCS: 99212; G0463

== ENCOUNTER → 2021-07-20 | Outpatient (CLI) | payer OTHER ==
[2017-07-31 08:08] VITALS: BP 175/81
[~2021-07-20] MED LIST changes: +BUPIVACAINE MPF 0.25% 10 ML VIAL. ONE; +DEXAMETHASONE PRES.FREE 10 MG/ML VIAL. ONE
--- NOTE | 2021-07-20 08:46 | PDOC ---
Progress Note - Pain Clinic Date of Service: DOS: DATE: 07/20/21 TIME: 08:39 Diagnosis: Dx: Myofascial pain Lumbar to colopathy with lumbar degenerative disease and lumbar spinal stenosis, with lumbar spondylosis History or Present Illness: HPI: 55-year-old female returns for follow-up status post lumbar epidural steroid injection with only about 50% improvement of the pain returning fairly quickly and now is different and that it is in the mid back upper back as well as the low back bilaterally very tight sensation which is spasming and tingling at the same time patient report is worse with walking standing changing positions better with laying down or resting but it wakes her from sleep still least every 5 hours patient reports its becoming more noticeable between the shoulders and more a tight sensation and a spastic sensation in the back itself without significant radiation to the lower extremities at this time patient reports her low back is the worst but is present in the mid upper back as well as the bilateral posterior hips and gluteus musculature which also feels very tight in the superior aspect patient reports again worse with rotation of motion bending stooping she needs to change positions frequently throughout the day with laying down every 30 minutes or so and 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 Patient reports no bowel or bladder incontinence no loss of motor function. Physical Exam: VS: Blood pressure is 150/88 pulse 99 respirations 18 temperature 98.3 F weight is 133 pounds PE: PHYSICAL EXAMINATION: GENERAL: The patient is awake, alert, oriented, appropriate, very pleasant in demeanor HEENT: Shows normocephalic, atraumatic. Extraocular movements are intact and symmetrical. Oral cavity: Mucous membranes moist and pink. Dentition is intact. NECK: Shows anterior throat supple without palpable lymphadenopathy noted. Swallow reflex symmetrical. CHEST: Shows normal on inspection. Breath sounds are clear bilaterally, coarse but no rales rhonchi or wheezes auscultated. HEART: Shows S1, S2 clear. No murmurs auscultated. ABDOMEN: Soft, nontender, nondistended. No palpable organomegaly is noted. BACK: Shows spine grossly in the midline. Normal-appearing cervical lordotic curvature. There is slightly increased thoracic kyphosis, some minor flattening of the lumbar lordotic curvature. Lumbar paraspinous muscles show symmetrical on inspection, on palpation shows some moderate tenderness diffusely throughout the upper, middle and lower distribution of the paraspinous muscles, with very firm ropelike musculature throughout the right and left upper middle lower distribution the paraspinous musculature consistent with trigger point areas of musculature this is true into the mid and lower distribution thoracic paraspinous muscles bilaterally also very firm ropelike musculature with very tender areas of trigger point musculature noted as well. Patient reports no specific radiation with palpation on the trigger point areas these are true into the superior medial aspect of the gluteus bilaterally slightly worse on the right than the left but present bilaterally as well without radiation. The patient has good rotational motion of the lumbar spine, both laterally as well as extension and flexion without significant difficulty. No tenderness over the spinous processes, sacrum or sacroiliac regions. EXTREMITIES: Lower extremities show deep tendon reflexes 2+ in the patellar and tendo calcaneus tendons. Motor exam is 4 on a scale of 5 with right dorsiflexion, extension, quadriceps and hamstring flexion and 5/5 on the left. Peripheral pulses are 1+ posterior tibial. No peripheral edema is noted bilaterally. Lower extremities are warm and dry to touch, equal in color and appearance. SKIN: Shows warm and dry, good turgor. No edema. No sores, rashes or bruising throughout. Procedure: Procedure: Options discussed with patient. Patient chart was reviewed as her current medication regimen updated current review of systems updated today as well. We will proceed with trigger point injections of the bilateral thoracic paraspinous musculature, bilateral lumbar paraspinous muscle, bilateral gluteus musculature. Risks are discussed including but not limited to bleeding infection possibility of intravascular ejection sequelae spread of local acetic numbness side effects steroid medication pneumothorax as well as poor results regarding pain control. Patient understands and wished to proceed. Patient will return to the clinic in approximately 2 weeks for follow-up, was counseled as to return appointment, active level, and side effect to be aware of. Medication Injected: Med Injected: Patient sitting position under sterile prep and drape bilateral thoracic paraspi nous muscles or bilateral lumbar paraspinous posterior bilateral gluteus musculature was identified and trigger points identified throughout the musculature and using a 25-gauge needle was injected after negative aspiration each injection site for a total of 10 cc 0.25% bupivacaine and total of 10 mg dexamethasone. Patient tolerated the procedure well and had no complications. Condition at Discharge: Condition at Discharge: Condition at discharge stable, paced tolerated the procedure well and had no complications. QUETA GUARDADO MD Jul 20, 2021 08:46
--- NOTE | 2021-07-20 08:46 | PDOC4 ---
Procedure Note: ICD 10 Code: ICD 10 Code: M60.89 Procedure Note: Patient was consented for trigger point injections right lateral thoracic paraspinous posture, bilateral lumbar paraspinous muscle, bilateral gluteus musculature. Risk were discussed including but not limited to bleeding infection possibility of intravascular ejection sequelae spread of local anesthetic numbness pneumothorax side effects steroid medication and poor results regarding pain control. Patient understands wishes to proceed. Patient sitting position under sterile prep and drape bilateral thoracic paraspinous muscles or bilateral lumbar paraspinous posterior bilateral gluteus musculature was identified and trigger points identified throughout the musculature and using a 25-gauge needle was injected after negative aspiration each injection site for a total of 10 cc 0.25% bupivacaine and total of 10 mg dexamethasone. Patient tolerated the procedure well and had no complications. QUETA GUARDADO MD Jul 20, 2021 08:46
== END | disposition home or self-care (01) ==
LOC: PNCL 08:06
PROVIDERS: ATTEND Anesthesiology
DX: M79.18 Myalgia, other site (principal); M48.061 Spinal stenosis, lumbar region without neurogenic claudication; M47.26 Other spondylosis with radiculopathy, lumbar region; M51.16 Intervertebral disc disorders with radiculopathy, lumbar region; F17.210 Nicotine dependence, cigarettes, uncomplicated; Z79.899 Other long term (current) drug therapy; Z88.0 Allergy status to penicillin
CPT/HCPCS: 20553; J1100; J3490

== ENCOUNTER → 2021-08-08 | Outpatient (CLI) | payer OTHER ==
[2017-07-31 08:08] VITALS: BP 175/81
[~2021-08-08] MED LIST changes: -BUPIVACAINE MPF 0.25% 10 ML VIAL. ONE; -DEXAMETHASONE PRES.FREE 10 MG/ML VIAL. ONE
--- NOTE | 2021-08-08 09:45 | RAD ---
EXAMINATION: US ABDOMEN COMPLETE CLINICAL HISTORY: Abdominal pain. TECHNIQUE: Grayscale sonographic imaging of the abdomen obtained with color Doppler imaging and spect ral Doppler analysis as indicated. COMPARISON: None FINDINGS: Pancreas: Normal sonographic appearance. - Portions obscured: Tail - Lesions: None Liver: - Echotexture: Normal, homogeneous. - Echogenicity: Normal - Surface contour: Smooth - Lesions: None Biliary: No intrahepatic biliary duct dilation. - CBD: 3 mm. - Gallbladder: Normal caliber - Contents: No cholelithiasis - Wall: Normal - Other: No pericholecystic fluid. Spleen: - Craniocaudal length: 7.5 cm. - Lesions: None Right Kidney: - Renal length: 11.9 cm - Parenchyma: Normal parenchymal echogenicity. Normal parenchymal thickness. - Collecting system: No hydronephrosis. - Calculus: No echogenic, shadowing calculus. - Lesion: None Left Kidney: - Renal length: 11.2 cm - Parenchyma: Normal parenchymal echogenicity. Normal parenchymal thickness. - Collecting system: No hydronephrosis. - Calculus: No echogenic, shadowing calculus. - Lesion: None IVC: Imaged segments patent. Abdominal Aorta: Imaged segments patent. Ascites: None. IMPRESSION: Unremarkable exam. Electronically signed by: Jp Prieto DO (08/08/2021 9:15 AM) [id number]
== END ==
LOC: US 08-07 14:28
PROVIDERS: ATTEND Family Medicine
DX: R10.9 Unspecified abdominal pain (principal)
CPT/HCPCS: 76700

== ENCOUNTER 2021-10-10 12:38 | Emergency (ER) | payer OTHER ==
[~2021-10-10] VITALS: Ht 167.6 cm; Wt 62.0 kg
[2021-10-10 12:40] VITALS: BP 184/90
[2021-10-10] MEDS ORDERED: diazePAM 5 MG TABLET PO ONE (13:30)
[2021-10-10] MEDS ORDERED: KETOROLAC 60 MG/2 ML VIAL. IM ONE (13:30)
[2021-10-10] MEDS ORDERED: MORPHINE SULFATE 2 MG/ML INJ. IM ONE (13:30)
--- NOTE | 2021-10-10 13:42 | PHYS DOC ---
Past Medical History Past Medical History: Sciatica, Other Additional Past Medical Histor: chronic neck pain, PVD Past Surgical History: Tubal ligation, Other Additional Past Surgical Histo: neck, STENTS IN BILAT LEGS Smoking Status: Current Every Day Smoker Alcohol Use: None Drug Use: None General Adult EDM: Chief Complaint: BACK PAIN - NO INJURY HPI: HPI: Patient is a 55 year old female presented to the ED today complaining of 10 out of 10 left low back pain radiating to the left lower extremity, symptoms have been going on for over 2 years. Patient denies any trauma. Denies any loss of bowel/bladder function. Describes the pain as shooting and constant worse on movement and standing. Reports some relief of the pain when laying down. Patient states she has been seen by an orthopedic doctor, vascular surgeon, neurosurgeon, PCP, and pain clinic. She states she has had steroid injections to her back with no relief. She states she had an MRI done which did not show anything specific in regards to pinched nerve. She states she is currently on tramadol with no relief. She states she has hydrocodone but cannot take it because it makes her sleepy. Review of Systems: Review of Systems: Constitutional: Denies fever or chills. [] GI: Denies abdominal pain, nausea, vomiting, bloody stools or diarrhea. [] : Denies dysuria. [] Musculoskeletal: Reports left low back pain radiating to the left lower extremity Integument: Denies rash. [] Neurologic: Denies headache, focal weakness or sensory changes. [] Psychiatric: Denies depression or anxiety. [] Heart Score: C/O Chest Pain: N/A Risk Factors: Risk Factors: DM, Current or recent (<one month) smoker, HTN, HLP, family history of CAD, obesity. Risk Scores: Score 0 - 3: 2.5% MACE over next 6 weeks - Discharge Home Score 4 - 6: 20.3% MACE over next 6 weeks - Admit for Clinical Observation Score 7 - 10: 72.7% MACE over next 6 weeks - Early Invasive Strategies Current Medications: Current Medications Medications (Trade) Dose Ordered Sig/Ricco Start Time Stop Time Status Last Admin Dose Admin Diazepam (Valium) 5 mg 1X ONCE 10/10/21 13:30 10/10/21 13:31 DC Ketorolac Tromethamine (Toradol Im) 60 mg 1X ONCE 10/10/21 13:30 10/10/21 13:31 DC Morphine Sulfate (Morphine Sulfate) 2 mg 1X ONCE 10/10/21 13:30 10/10/21 13:31 DC Allergies: Allergies: Allergies Coded Allergies Type Severity Reaction Last Updated Verified Penicillins Allergy Unknown 01/23/15 No Physical Exam: PE: Constitutional: Well developed, well nourished, no acute distress, non-toxic appearance. [] Abdomen: Bowel sounds normal, soft, no tenderness, no masses, no pulsatile masses. [] Skin: Warm, dry, no erythema, no rash. [] Back: No tenderness, no CVA tenderness. [] Extremities: No tenderness, no cyanosis, no clubbing, ROM intact, no edema. Positive straight leg raise to the left lower extremity Neurologic: Alert and oriented X 3, normal motor function, normal sensory function, no focal deficits noted. [] Psychologic: Affect normal, judgement normal, mood normal. [] Current Patient Data: Vital Signs: Vital Signs Date Time Temp Pulse Resp B/P (MAP) Pulse Ox O2 Delivery O2 Flow Rate FiO2 10/10/21 12:40 97.7 105 24 184/90 (121) 91 Room Air 97.7 EKG: EKG: [] Radiology/Procedures: Radiology/Procedures: [] Course & Med Decision Making: Course & Med Decision Making Pertinent Labs and Imaging studies reviewed. (See chart for details) This is a 55-year-old female patient presenting to the ED today with chronic left sciatica pain. As noted in HPI this patient follows up with a neurosurgeon, orthopedic doctor, PCP and pain clinic. She has already had an MRI of the lumbar spine. Currently she has no injury, no cauda equina syndrome symptoms. She was given pain relief in the ED and discharged to home. Encouraged to continue following up with her specialist. Winnie Disclaimer: Winnie Disclaimer: This electronic medical record was generated, in whole or in part, using a voice recognition dictation system. Departure Departure Impression: Primary Impression: Sciatica of left side Disposition: HOME / SELF CARE / HOMELESS Condition: STABLE Referrals: MARY KAY BRYANT MD (PCP) follow up in the course of this week Patient Instructions: Sciatica Additional Instructions: You were evaluated in the emergency room for sciatica pain. We highly encourage you to follow-up with your specialists. Contact them tomorrow morning and set up a follow-up appointment. Continue taking your pain medicines at home. FRIDA MAYNARD APRN October 10, 2021 13:42
[2021-10-10] MEDS ORDERED: DEXAMETHASONE SOD PHOS 20 MG/5 ML VIAL. IM ONE (14:45)
== END 2021-10-10 14:51 | disposition home or self-care (01) ==
LOC: ER 12:38
DX: M54.42 Lumbago with sciatica, left side (principal); G89.29 Other chronic pain; F17.200 Nicotine dependence, unspecified, uncomplicated; Z88.0 Allergy status to penicillin
CPT/HCPCS: 96372; 99284; J1100; J1885; J2270